=== PATIENT | male | born 1990 | race Caucasian/White ===

== ENCOUNTER 2022-02-15 13:40 | Emergency (ER) | payer BC ==
[2022-02-15 17:55] LABS: MEAN CORPUSCULAR HGB 29.8 pg (27.0-31.0); MEAN CORPUSCULAR HGB CONC 33.9 g/dl (33.0-37.0); MEAN PLATELET VOLUME 12.9 fl (9.6-12.3); PLATELET COUNT AUTOMATED 152 10*3/uL (130-400); RED BLOOD COUNT 4.66 10*6/uL (4.50-5.90); RED CELL DISTRI WIDTH 13.2 % (0-14.5); WHITE BLOOD COUNT 6.2 10*3/uL (4.8-10.8)
[2022-02-15 17:57] LABS: MANUAL DIFF REFLEX YES
[2022-02-15 18:09] LABS: ALKALINE PHOSPHATASE 317 U/L (45-117); BUN 12 mg/dl (7-24); CHLORIDE 103 mmol/L (98-107); CREATININE 1.15 mg/dL (0.70-1.30); LIPASE 137 U/L (73-393); POTASSIUM 3.8 mmol/L (3.5-5.1); SGOT/AST 454 IU/L (3-35); SGPT/ALT 700 U/L (12-78); SODIUM 135 mmol/L (136-145); TOTAL PROTEIN 7.7 gm/dL (6.4-8.2)
[2022-02-15 18:33] LABS: TOTAL CELLS COUNTED 100 #CELLS
[2022-02-15 18:34] LABS: PLATELET SUFFICIENCY NORMAL (NORMAL); POLYCHROMASIA SLIGHT
[2022-02-15 18:50] LABS: ATYPICAL LYMPHS 3 % (0-0)
[2022-02-17 07:07] LABS: HBSAG Negative (Negative); HEP B CORE AB, IGM Negative (Negative); HEPATITIS A AB IGM Negative (Negative)
[2022-02-17 08:08] LABS: HEPATITIS C ANTIBODY 0.1 (0.0-0.9)
== END 2022-02-15 23:14 | disposition home or self-care (01) ==
LOC: ED 13:40
PROVIDERS: Emergency Medicine; Internal Medicine
DX: R79.89 Other specified abnormal findings of blood chemistry (principal)

== ENCOUNTER 2023-05-24 11:55 | Emergency (ER) | payer BC ==
[~2023-05-24] VITALS: Ht 167.6 cm; Wt 93.9 kg
== END 2023-05-24 14:27 | disposition home or self-care (01) ==
LOC: ED 11:55
DX: H61.22 Impacted cerumen, left ear (principal)